=== PATIENT | female | born 1965 | race Caucasian/White ===

== ENCOUNTER → 2017-11-30 | Outpatient (CLI) | payer OTHER ==
[~2017-11-30] MED LIST: LEVOXYL0.025 MG PO; NORCO 325 MG-7.1 TAB PO; PERCOCET 325 MG1 TA2 PO; PERCR 7.5 PO; ZESTRIL 10MG10 MG PO; ZOFRAN 4MG T4 MG/TAB PO
== END ==
LOC: COL.RAD 10:00
DX: C18.7 Malignant neoplasm of sigmoid colon (principal); Z95.828 Presence of other vascular implants and grafts
CPT/HCPCS: Q9967

== ENCOUNTER → 2018-05-31 | Outpatient (CLI) | payer OTHER | LOC: COL.RAD 09:52 | DX: C18.7 Malignant neoplasm of sigmoid colon (principal); K76.9 Liver disease, unspecified; K63.89 Other specified diseases of intestine; Z90.710 Acquired absence of both cervix and uterus | CPT/HCPCS: Q9967 ==

== ENCOUNTER → 2018-06-07 | Outpatient (CLI) | payer OTHER ==
[~2018-06-07] MED LIST changes: +VITAMIN D31000 I1 PO; +ZESTRIL 20MG TA20 MG PO
== END ==
LOC: COL.RAD 07:30
DX: E04.2 Nontoxic multinodular goiter (principal)

== ENCOUNTER → 2018-06-15 | Outpatient (CLI) | payer OTHER ==
[~2018-06-15] VITALS: Ht 180.3 cm; Wt 70.4 kg
[2018-06-15 07:25] VITALS: BP 142/83; PULSE 62
[2018-06-15 08:35] VITALS: BP 138/87; PULSE 65
--- NOTE | 2018-06-15 08:53 | NUR ---
PT AND SPOUSE AMBULATED TO POV WITH STAFF. THE PT HAD NO FURTHER QUESTIONS OR CONCERNS
== END ==
LOC: COL.RAD 07:00
DX: E04.2 Nontoxic multinodular goiter (principal)

== ENCOUNTER → 2018-09-07 | Outpatient (CLI) | payer OTHER | LOC: COL.RAD 08:30 | DX: K76.9 Liver disease, unspecified (principal); Z85.038 Personal history of other malignant neoplasm of large intestine; Z98.890 Other specified postprocedural states; Z90.710 Acquired absence of both cervix and uterus | CPT/HCPCS: Q9967 ==

== ENCOUNTER → 2019-03-15 | Outpatient (CLI) | payer OTHER | LOC: COL.RAD 08:30 | DX: C18.7 Malignant neoplasm of sigmoid colon (principal); K76.9 Liver disease, unspecified; Z95.9 Presence of cardiac and vascular implant and graft, unspecified; Z90.710 Acquired absence of both cervix and uterus | CPT/HCPCS: Q9967 ==

== ENCOUNTER → 2020-01-08 | Outpatient (CLI) | payer OTHER | LOC: COL.RAD 08:30 | DX: C18.7 Malignant neoplasm of sigmoid colon (principal); K76.9 Liver disease, unspecified; Z95.9 Presence of cardiac and vascular implant and graft, unspecified; Z90.710 Acquired absence of both cervix and uterus | CPT/HCPCS: Q9967 ==